=== PATIENT | male | born 1945 | race Two or more races ===

== ENCOUNTER → 2017-07-01 | Outpatient (REF) | payer OTHER | LOC: M SMT 16:55 | PROVIDERS: ATTEND Nurse Practitioner Women's Health | DX: R97.20 Elevated prostate specific antigen [PSA] (principal) ==

== ENCOUNTER → 2017-07-18 | Outpatient (CLI) | payer OTHER ==
[~2017-07-18] MED LIST: ISOVUE-370 76% 100ML VIAL (Q9967) As Ordered
== END ==
LOC: M RAD 09:26
DX: R93.5 Abnormal findings on diagnostic imaging of other abdominal regions, including retroperitoneum (principal); C61 Malignant neoplasm of prostate; R97.20 Elevated prostate specific antigen [PSA]; K76.89 Other specified diseases of liver
CPT/HCPCS: Q9967

== ENCOUNTER → 2017-08-16 | Outpatient (CLI) | payer OTHER ==
[2017-08-16 18:42] LABS: TESTOSTERONE 11 NG/DL (241-827)
== END ==
LOC: M SMT 12:14
DX: C61 Malignant neoplasm of prostate (principal)
CPT/HCPCS: 84403

== ENCOUNTER → 2017-09-17 | Outpatient (CLI) | payer OTHER | LOC: M SMT 14:30 | DX: C79.82 Secondary malignant neoplasm of genital organs (principal) | CPT/HCPCS: 84153 ==